=== PATIENT | female | born 1985 | race Caucasian/White ===

== ENCOUNTER 2018-08-15 11:12 | Emergency (ER) | payer BC, SELFPAY ==
[2018-08-15 11:25] VITALS: BP 125/73
[2018-08-15] MEDS ORDERED: Lactated Ringers 1,000 ML IV SCH (11:45)
--- NOTE | 2018-08-15 11:45 | EDM.PDOC ---
ED HPI GENERAL MEDICAL PROBLEM - General Chief Complaint: Abdominal Pain Stated Complaint: POSSIBLE BOWEL OBSTRUCTION Time Seen by Provider: 08/15/18 11:30 Source of Information: Reports: Patient, Old Records History Limitations: Reports: No Limitations - History of Present Illness INITIAL COMMENTS - FREE TEXT/NARRATIVE: 33 yo female with a remote hx of gastric bypass about 9-10 yrs ago and a pHx of recurrent bowel obstructions presents with progressive sx's of abdominal pain, anorexia, and GERD that has progressed to vomiting. She was referred by Monet Ontiveros today to the ER to rule out bowel obstruction. She states her current sx' s remind her of when she last had a bowel obstruction. Onset: Gradual Duration: Week(s):, Getting Worse Location: Reports: Abdomen Quality: Reports: Other (crampy) Severity: Moderate Improves with: Reports: None Worsens with: Reports: Other (time) Context: Reports: Other (See HPI) Associated Symptoms: Reports: Loss of Appetite, Nausea/Vomiting. Denies: Fever/ Chills Treatments PROPULSION GENERATOR REPAIRER: Reports: Other (see below) (none) Upper Abdomen Pain Score (Numeric/FACES): 7 - Related Data Allergies Allergy/AdvReac Type Severity Reaction Status Date / Time ethinyl estradiol Allergy Rash Verified 08/15/18 11:44 [From Sprintec (28)] ferric carboxymaltose Allergy Other Verified 08/15/18 11:44 [From Injectafer] norgestimate Allergy Rash Verified 08/15/18 11:44 [From Sprintec (28)] Home Meds: Home Meds Vitamin B Complex [B Complex] 1 each PO DAILY 09/02/14 [History] Zinc 50 mg PO DAILY 09/02/14 [History] Cholecalciferol (Vitamin D3) [Vitamin D3] 3,000 unit PO DAILY 06/12/15 [History] Cyanocobalamin (Vitamin B12) [Vitamin B12] 1,000 mcg IJ Q7D 06/12/15 [History] Multivitamin [Multivitamins] 1 tab PO BID 06/12/15 [History] Polyethylene Glycol 3350 [MiraLAX] 17 gm PO DAILY 06/12/15 [History] Biotin [Hard Nails] 2,500 mcg PO BID 06/16/15 [History] Acetaminophen/Diphenhydramine [Tylenol Pm Ex-Strength Caplet] 1 cap PO BEDTIME PRN 12/18/17 [History] Ferrous Fumarate 1 tab PO DAILY 12/18/17 [History] Sennosides/Docusate Sodium [Sennosides-Docusate Sodium] 2 tab PO BID 12/18/17 [ History] Docusate Sodium [Colace] 100 mg PO BID 12/21/17 [History] Acetaminophen [Tylenol Extra Strength] 1,000 mg PO Q6H PRN tablet 12/26/17 [Rx] Omeprazole 40 mg PO BID #60 cap.cr 12/26/17 [Rx] Ondansetron [Zofran ODT] 4 mg PO Q6H PRN #30 tab.dis 12/26/17 [Rx] Past Medical History HEENT History: Reports: Otitis Media Respiratory History: Reports: Sleep Apnea Other Respiratory History: hx before [facility] Gastrointestinal History: Reports: Bowel Obstruction, Chronic Constipation, Gastritis, GERD, GI Bleed, Irritable Bowel Syndrome, PUD, Other (See Below) Other Gastrointestinal History: volvulus Genitourinary History: Reports: UTI, Recurrent STUNT DOUBLE History: Reports: Endometriosis, Spontaneous , Other (See Below) Other STUNT DOUBLE History: polyps Musculoskeletal History: Reports: Back Pain, Chronic, Other (See Below) Other Musculoskeletal History: herniated disc Endocrine/Metabolic History: Reports: Vitamin D Deficiency Hematologic History: Reports: Anemia, B12 Deficiency, Iron Deficiency Dermatologic History: Reports: Eczema - Infectious Disease History Infectious Disease History: Reports: Chicken Pox - Past Surgical History Head Surgeries/Procedures: Reports: None HEENT Surgical History: Reports: Other (See Below) Other HEENT Surgeries/Procedures: right eardrum ruptured GI Surgical History: Reports: Bariatric Procedure, EGD Female Surgical History: Reports: D&C, Hysterectomy, Other (See Below) Other Female Surgeries/Procedures: d&c x2 Social & Family History - Family History HEENT: Reports: Cataract Cardiac: Reports: Heart Murmur, High Cholesterol, Hypertension, CA GI: Reports: Colon Polyps, Diverticulitis, Hiatal Hernia, Irritable Bowel Syndrome, PUD OBGYN: Reports: Endometriosis, , Recurrent Spontaneous Neurological: Reports: CVA, Migraines Psychiatric: Reports: Depression Immunologic: Reports: Immunosuppression, Other (See Below) Other Immunologic Family History: lupus Oncologic: Reports: Brain, Cervix, Colon - Caffeine Use Caffeine Use: Reports: Coffee ED ROS GENERAL - Review of Systems Review Of Systems: See Below Constitutional: Reports: No Symptoms HEENT: Reports: No Symptoms Respiratory: Reports: No Symptoms Cardiovascular: Reports: No Symptoms GI/Abdominal: Reports: Abdominal Pain, Anorexia, Constipation (chronic, not changed, managed effectively with Miralax), Decreased Appetite, Nausea, Vomiting. Denies: Black Stool, Bloody Stool, Diarrhea, Distension, Flatus, Hematemesis, Hematochezia, Melena : Reports: No Symptoms Musculoskeletal: Reports: No Symptoms Skin: Reports: No Symptoms ED EXAM, GI/ABD - Physical Exam Exam: See Below Exam Limited By: No Limitations General Appearance: Alert, WD/WN, No Apparent Distress Eyes: Bilateral: Normal Appearance Ears: Normal External Exam, Normal Canal, Hearing Grossly Normal Nose: Normal Inspection, No Blood Throat/Mouth: Normal Inspection, Normal Lips, Normal Voice, No Airway Compromise Head: Atraumatic, Normocephalic Neck: Normal Inspection Respiratory/Chest: No Respiratory Distress, Lungs Clear, Normal Breath Sounds, No Accessory Muscle Use Cardiovascular: Regular Rate, Rhythm, No Edema GI/Abdominal Exam: Soft, No Distention, Tender, Abnormal Bowel Sounds (increased ). No: Non-Tender, Distended, Guarding, Rigid, Rebound Back Exam: Normal Inspection. No: CVA Tenderness (R), CVA Tenderness (L) Extremities: Normal Inspection, Normal Range of Motion, Non-Tender, No Pedal Edema Neurological: Alert, Oriented, CN II-XII Intact, Normal Cognition, No Motor/ Sensory Deficits Psychiatric: Normal Affect, Normal Mood Skin Exam: Warm, Dry, Intact, Normal Color, No Rash Course - Vital Signs Text/Narrative:: Monet Ontiveros called with CT results @ 1300h Last Recorded V/S: Last Vital Signs Temp 35.8 C 08/15/18 11:48 Pulse 68 08/15/18 11:48 Resp 16 08/15/18 11:48 BP 125/73 08/15/18 11:48 Pulse Ox 99 08/15/18 11:48 - Orders/Labs/Meds Orders: Active Orders 24 hr Category Date Time Status Lactated Ringers [Ringers, Lactated] 1,000 ml Med 08/15/18 11:45 Active IV ASDIRECTED Sodium Chloride 0.9% [Saline Flush] Med 08/15/18 11:46 Active 10 ml FLUSH ONETIME PRN Medication Orders Lactated Ringer's (Ringers, Lactated) 1,000 mls @ 150 mls/hr IV ASDIRECTED ELENA Last Admin: 08/15/18 11:57 Dose: 150 mls/hr Sodium Chloride (Saline Flush) 10 ml FLUSH ONETIME PRN PRN Reason: PER RADIOLOGY PROTOCOL Last Admin: 08/15/18 12:09 Dose: 10 ml Meds: Medications Generic Name Dose Route Start Last Admin Trade Name Freq PRN Reason Stop Dose Admin Lactated Ringer's 1,000 mls @ 150 mls/hr 08/15/18 11:45 08/15/18 11:57 Ringers, Lactated IV 150 mls/hr ASDIRECTED ELENA Administration Sodium Chloride 10 ml 08/15/18 11:46 08/15/18 12:09 Saline Flush FLUSH 10 ml ONETIME PRN Administration PER RADIOLOGY PROTOCOL Discontinued Medications Generic Name Dose Route Start Last Admin Trade Name Freq PRN Reason Stop Dose Admin Sodium Chloride 70 mls @ 3 mls/sec 08/15/18 11:46 08/15/18 12:09 Normal Saline IV 08/15/18 11:47 3 mls/sec ONETIME ONE Administration Iopamidol 96 ml 08/15/18 11:46 08/15/18 12:09 Isovue-300 (61%) IV 96 ml . DIRECTED PRN Administration RADIOLOGY EXAM - Radiology Interpretation Free Text/Narrative:: CT abd/pelvis with IV contrast-no findings of bowel obstruction, moderate fluid retention in the distal small bowel and colon. CT Results Date: 08/15/18 Departure - Departure Time of Disposition: 13:02 Disposition: Home, Self-Care 01 Condition: Fair Clinical Impression: Vomiting Qualifiers: Vomiting type: bilious vomiting Nausea presence: with nausea Qualified Code(s) : R11.14 - Bilious vomiting GERD (gastroesophageal reflux disease) Qualifiers: Esophagitis presence: without esophagitis Qualified Code(s): K21.9 - Gastro- esophageal reflux disease without esophagitis - Discharge Information *PRESCRIPTION DRUG MONITORING PROGRAM REVIEWED*: No *COPY OF PRESCRIPTION DRUG MONITORING REPORT IN PATIENT ANNY: No Instructions: Gastroesophageal Reflux Disease, Adult, [id number] Referrals: PCP,None [Primary Care Provider] - Forms: ED Department Discharge Additional Instructions: Double the dose of your omeprazole for the next week. Use Zofran as needed. Eat small amts at a time. F/U with Monet Ontiveros in the clinic in the next few days. - My Orders Last 24 Hours: My Active Orders 08/15/18 11:45 Lactated Ringers [Ringers, Lactated] 1,000 ml IV ASDIRECTED 08/15/18 11:46 Sodium Chloride 0.9% [Saline Flush] 10 ml FLUSH ONETIME PRN - Assessment/Plan Last 24 Hours: My Active Orders 08/15/18 11:45 Lactated Ringers [Ringers, Lactated] 1,000 ml IV ASDIRECTED 08/15/18 11:46 Sodium Chloride 0.9% [Saline Flush] 10 ml FLUSH ONETIME PRN
[2018-08-15] MEDS ORDERED: Sodium Chloride 0.9% 10 ML Syringe FLUSH PRN (11:46)
[2018-08-15] MEDS ORDERED: Iopamidol 612 MG/ML 100 ML Bottle IV PRN (11:46)
--- NOTE | 2018-08-15 12:51 | CRLCT ---
INDICATION: Abdominal pain. History of gastric bypass surgery. TECHNIQUE: CT abdomen and pelvis acquired with 96 cc Isovue 300 IV contrast. COMPARISON: December 16, 2017. FINDINGS: Lower chest: Unremarkable. Liver: Unremarkable. Normal in size and attenuation. No masses. Gallbladder and bile ducts: Unremarkable. No stones or inflammation. No biliary dilatation. Pancreas: Unremarkable. No mass or inflammation. Spleen: Unremarkable. Normal in size. No masses. Adrenal glands: Unremarkable. No nodules. Kidneys: Unremarkable. No masses, stones, or hydronephrosis. GI tract: There are stable gastric bypass changes. There is moderate fluid retention in the distal small bowel and colon. No focal inflammation or mass. Normal appendix. Vasculature: Unremarkable. Lymph nodes: No lymphadenopathy. Omentum/Peritoneum/Abdominal Wall: Small fat containing supraumbilical ventral hernia is unchanged. No free air or fluid collection. Pelvis: A 3 cm left adnexal cystic lesion is present. Otherwise unremarkable pelvis. Bones: Unremarkable for age. IMPRESSION: Stable gastric bypass changes. Bowel pattern does not appear obstructive. However, there is moderate fluid retention in the distal small bowel and colon. This finding can be seen with a nonspecific enteritis. Dictated by Woody Garnica MD @ 08/15/2018 12:49:51 PM Please note that all CT scans at this facility use dose modulation, iterative reconstruction, and/or weight-based dosing when appropriate to reduce radiation dose to as low as reasonably achievable. Dictated by: Woody Garnica MD @ 08/15/2018 12:49:54 (Electronically Signed)
== END 2018-08-15 13:10 | disposition home or self-care (01) ==
LOC: JP.ED 11:12
DX: K21.9 Gastro-esophageal reflux disease without esophagitis (principal); Z88.8 Allergy status to other drugs, medicaments and biological substances; Z79.899 Other long term (current) drug therapy
CPT/HCPCS: 74177; 96360; 99284; J7030; J7120; Q9967

== ENCOUNTER 2020-02-04 11:00 | Inpatient (IN) | payer BC, OTHER ==
[~2020-02-04 11:00] MED LIST: Acetaminophen 500 MG Tab PO ONE; Bupivacaine 0.5% 50 ML MDV ONE; Celecoxib 200 MG Cap PO ONE; Lidocaine 1% with EPINEPHrine 1:100,000 50 ML MDV ONE
[2020-02-04] MEDS ORDERED: ceFAZolin 2 GM in Premix Bag 1 BAG IV ONE (11:30)
[2020-02-04] MEDS ORDERED: Dextrose 5%-Lactated Ringers 1,000 ML IV SCH ×2 (11:30→16:30)
[2020-02-04] MEDS ORDERED: Neostigmine Methylsulfate 1 MG/ML 5 ML Syringe ONE (11:51)
[2020-02-04] MEDS ORDERED: Rocuronium 50 MG/5 ML Vial ONE (11:51)
[2020-02-04] MEDS ORDERED: Dexamethasone 4 MG/ML SDV ONE (11:51)
[2020-02-04] MEDS ORDERED: Glycopyrrolate 0.2 MG/ML 5 ML MDV ONE (11:51)
[2020-02-04] MEDS ORDERED: Propofol 200 MG/20 ML SDV ONE (11:51)
[2020-02-04] MEDS ORDERED: Ondansetron 4 MG/2 ML SDV ONE (11:51)
[2020-02-04] MEDS ORDERED: fentaNYL 250 MCG/5 ML SDV ONE ×2 (11:53→14:37)
[2020-02-04] MEDS ORDERED: Scopolamine 1.5 MG Transdermal Patch TOP SCH (12:00)
[2020-02-04] MEDS ORDERED: Ketamine 50 MG in Sodium Chloride 0.9% 49.5 ML IV SCH (12:00)
[2020-02-04] MEDS ORDERED: Ketamine 500 MG/5 ML MDV IV SCH (12:00)
[2020-02-04] MEDS ORDERED: Naloxone 0.4 MG/ML SDV IVPUSH PRN (12:25)
[2020-02-04] MEDS ORDERED: Ondansetron 4 MG/2 ML SDV IVPUSH PRN (12:25)
[2020-02-04] MEDS ORDERED: diphenhydrAMINE 50 MG/ML SDV IVPUSH PRN (12:25)
[2020-02-04] MEDS ORDERED: diphenhydrAMINE 25 MG Cap PO PRN (12:25)
[2020-02-04] MEDS ORDERED: Naloxone 0.4 MG/ML SDV IV PRN (13:00)
[2020-02-04] MEDS: Meropenem 500 MG SDV ONE ×2 (14:39→14:59)
[2020-02-04] MEDS: HYDROmorphone/Normal Saline 15 MG/30 ML PCA IV PRN (15:28)
[2020-02-04] MEDS ORDERED: hydrOXYzine HCL 100 MG/2 ML SDV IM PRN (17:00)
[2020-02-04] MEDS: SCOPOLAMINE PATCH CHECK TOP SCH (17:05)
[2020-02-04] MEDS: Cyclobenzaprine 10 MG Tab PO PRN (17:09)
[2020-02-04] MEDS: Ondansetron 4 MG/2 ML SDV IVPUSH PRN ×2 (17:37→22:24)
[2020-02-04] MEDS: MVI IV SCH ×4 (18:40)
[2020-02-04] MEDS: [UNRECOGNIZED DRUG - OTHER] IV SCH ×4 (18:40)
[2020-02-04] MEDS: Acetaminophen 500 MG Tab PO SCH (18:40)
[2020-02-04] MEDS: VITAMIN K IV SCH ×4 (18:40)
[2020-02-04] MEDS: LACTATED RINGERS IV SCH ×4 (18:40)
[2020-02-04] MEDS: DEXTROSE 5% IV SCH ×4 (18:40)
[2020-02-04] MEDS: ceFAZolin 2 GM in Premix Bag 1 BAG IV SCH (21:33)
[2020-02-05] MEDS: LACTATED RINGERS IV SCH ×4 (00:15)
[2020-02-05] MEDS: [UNRECOGNIZED DRUG - OTHER] IV SCH ×4 (00:15)
[2020-02-05] MEDS: Acetaminophen 500 MG Tab PO SCH ×4 (00:15→18:15)
[2020-02-05] MEDS: MVI IV SCH ×4 (00:15)
[2020-02-05] MEDS: VITAMIN K IV SCH ×4 (00:15)
[2020-02-05] MEDS: DEXTROSE 5% IV SCH ×4 (00:15)
[2020-02-05] MEDS: Ondansetron 4 MG/2 ML SDV IVPUSH PRN (02:33)
[2020-02-05] MEDS: ceFAZolin 2 GM in Premix Bag 1 BAG IV SCH ×2 (05:27→14:21)
[2020-02-05] MEDS ORDERED: Ondansetron 4 MG Tab.DIS PO PRN (06:40)
[2020-02-05] MEDS: Pantoprazole 40 MG Tab.CR PO SCH (08:04)
[2020-02-05] MEDS: Celecoxib 200 MG Cap PO SCH ×2 (08:04→20:29)
[2020-02-05] MEDS: Bisacodyl 5 MG Tab PO SCH ×2 (08:05→20:29)
[2020-02-05] MEDS: Multivitamins with Iron Tab.Chew PO SCH (08:06)
[2020-02-05] MEDS: SCOPOLAMINE PATCH CHECK TOP SCH (08:07)
[2020-02-05] MEDS ORDERED: Cyanocobalamin (Vitamin B12) 1,000 MCG/ML SDV IM ONE (09:00)
--- NOTE | 2020-02-05 11:21 | PN ---
DATE OF SERVICE: 02/04/2020 SUBJECTIVE: Delia is postoperative day 1. Pain has been controlled with the ASSISTANT EXECUTIVE HOUSEKEEPER. She has been up ambulating. Vital signs have been stable. N.p.o. with ice chips. Oral intake 1800 and urinary output is 420. Remainder of review of systems negative for any pertinent positives and negatives. OBJECTIVE: GENERAL: Yuly Díaz is a pleasant 34-year-old female. She is alert, answers questions appropriately, quite comfortable. VITAL SIGNS: TPR at 0413; 96, 150, 14. Blood pressure 93/57. HEENT: Negative. NECK: Supple. HEART: Regular rate and rhythm. LUNGS: Clear. ABDOMEN: Dressing dry and intact. Abdominal binder is on. EXTREMITIES: Without peripheral edema. ASSESSMENT: Exploratory laparotomy with lysis of adhesions. 1. Repair of incarcerated incisional hernia with mesh. 2. Repair of umbilical hernia. 3. Placement of Interceed mesh. POSTOPERATIVE DIAGNOSES: 1. Incarcerated incisional hernia. 2. Non-incarcerated umbilical hernia. 3. Extensive intraabdominal adhesions. Date of surgery: 02/04/2020. Surgeon: Cameron Albarado MD. PLAN: 1. Decrease IV to 100 mL per hour at 12 noon today. 2. Discontinue Urrutia catheter. 3. Step 2 gastric bypass diet. 4. Dulcolax tablets b.i.d., scheduled until patient has bowel movement. 5. Zofran ODT 4 mg sublingual every 4 hours p.r.n. nausea or vomiting. 6. Continue use of incentive spirometer. 7. We will evaluate p.r.n. or in a.m. Monet Ontiveros PA-C /[id number]
[2020-02-05] MEDS: Dextrose 5%-Lactated Ringers 1,000 ML IV SCH ×2 (11:56→14:25)
[2020-02-05] MEDS: HYDROmorphone/Normal Saline 15 MG/30 ML PCA IV PRN (16:09)
[2020-02-05] MEDS ORDERED: Furosemide 20 MG/2 ML VIAL IVPUSH ONE (20:20)
[2020-02-06] MEDS: Acetaminophen 500 MG Tab PO SCH ×5 (00:01→23:54)
[2020-02-06] MEDS: Dextrose 5%-Lactated Ringers 1,000 ML IV SCH (00:15)
[2020-02-06] MEDS: Bisacodyl 5 MG Tab PO SCH ×3 (08:16→20:56)
[2020-02-06] MEDS: SCOPOLAMINE PATCH CHECK TOP SCH (08:17)
--- NOTE | 2020-02-06 09:14 | PN ---
DATE OF SERVICE: 02/06/2020 SUBJECTIVE: Delia has been up ambulating frequently in the reynaga. She has been afebrile. Oral intake 1620 on a step 2 gastric bypass diet. Urine output after some Lasix was given last night for difficulty urinating, she had a total of 1450 out. Remainder of review of systems negative for any pertinent positives and negatives. OBJECTIVE: GENERAL: Delia Singh is a pleasant 34-year-old female. VITAL SIGNS: TPR at 0734 is 96.7, 60, 12. Blood pressure 107/62. HEENT: Negative. NECK: Supple. HEART: Regular rate and rhythm. LUNGS: Clear. ABDOMEN: Dressings are dry and intact. Abdominal binder is on. EXTREMITIES: Without peripheral edema. ASSESSMENT: Exploratory laparotomy with lysis of adhesions. 1. Repair of incarcerated incisional hernia with mesh. 2. Repair of umbilical hernia. 3. Placement of Interceed mesh. POSTOPERATIVE DIAGNOSES: 1. Incarcerated incisional hernia. 2. Non-incarcerated umbilical hernia. 3. Extensive intraabdominal adhesions. Date of surgery: 02/04/2020. Surgeon: Cameron Albarado MD. PLAN: 1. Discontinue CLINICAL SERVICES MANAGER and continuous pulse ox. 2. Dilaudid 2 mg 1 to 2 every 4 hours p.r.n. pain. 3. Step 4 gastric bypass diet. 4. MiraLAX 17 g p.o. daily. 5. Discontinue scopolamine patch. 6. If dressing off, may shower. 7. To continue ambulation and use of incentive spirometer. 8. We will evaluate p.r.n. or in a.m. Monet Ontiveros PA-C /[id number]
[2020-02-06] MEDS: HYDROmorphone 2 MG Tab PO PRN ×4 (10:08→22:26)
[2020-02-06] MEDS: Polyethylene Glycol 3350 Powder 17 GM Packet PO SCH (10:09)
[2020-02-06] MEDS: Celecoxib 200 MG Cap PO SCH ×3 (10:09→20:56)
[2020-02-06] MEDS: Multivitamins with Iron Tab.Chew PO SCH (10:10)
[2020-02-06] MEDS: Pantoprazole 40 MG Tab.CR PO SCH (10:11)
[2020-02-06] MEDS: Cyclobenzaprine 10 MG Tab PO PRN (23:56)
[2020-02-07] MEDS: HYDROmorphone 2 MG Tab PO PRN ×2 (02:08→06:09)
[2020-02-07] MEDS: Acetaminophen 500 MG Tab PO SCH (06:09)
[2020-02-07] MEDS ORDERED: Furosemide 20 MG/2 ML VIAL IVPUSH ONE (06:46)
[2020-02-07 07:30] VITALS: BP 101/70; PULSE 66
[2020-02-07] MEDS: Pantoprazole 40 MG Tab.CR PO SCH (07:33)
[2020-02-07] MEDS ORDERED: Magnesium Hydroxide 400 MG/5 ML Susp 30 ML Cup PO ONE (09:00)
[2020-02-07] MEDS: Celecoxib 200 MG Cap PO SCH (09:09)
[2020-02-07] MEDS: Multivitamins with Iron Tab.Chew PO SCH (09:09)
[2020-02-07] MEDS: Bisacodyl 5 MG Tab PO SCH (09:10)
[2020-02-07] MEDS: Polyethylene Glycol 3350 Powder 17 GM Packet PO SCH (09:10)
[2020-02-07] MEDS: SCOPOLAMINE PATCH CHECK TOP SCH (09:16)
--- NOTE | 2020-02-07 10:20 | DISCH ---
ADMISSION DIAGNOSES: Incisional hernia abdominal, Fransisco-en-Y gastric bypass surgery, unspecified surgical malabsorption, B12 deficiency, history of factor II deficiency, vitamin D deficiency. DISCHARGE DIAGNOSES: Exploratory laparotomy with lysis of adhesions. 1. Repair of incarcerated incisional hernia with mesh. 2. Repair of umbilical hernia. 3. Placement of Interceed mesh. POSTOPERATIVE DIAGNOSES: 1. Incarcerated incisional hernia. 2. Nonincarcerated umbilical hernia. 3. Extensive intraabdominal adhesions. 4. Date of surgery: 02/04/2020. Surgeon: Cameron Albarado MD. HISTORY: Delia Díaz is a 34-year-old female with incisional hernia. After preoperative evaluation and discussion of possible risks and possible complications, she wished to proceed with surgical procedure. HOSPITAL COURSE: Delia had her surgery on 02/04/2020. She had no operative complications. On postoperative day #1, she was started on step 2 gastric bypass diet. She was up, ambulating. Pain was well controlled. On postoperative day #2, she did have some fluid retention, was given some Lasix IV, and this resolved. Advanced to a step 4 gastric bypass diet and oral pain medication. On postoperative day #3, she was able to be discharged. Vital signs stable. Oral intake and output adequate. She was passing flatus but has not had a bowel movement yet. Pain is well managed, activity good, and was able to be discharged to home on 02/07/2020. PHYSICAL EXAMINATION: GENERAL: Delia Díaz is a pleasant 34-year-old female. VITAL SIGNS: Height is 5 feet 4.75 inches, weight is 147 pounds. TPR at 07:29 is 97.5; 66; 18; blood pressure 101/70. HEENT: Negative. NECK: Supple. HEART: Regular rate and rhythm. LUNGS: Clear. ABDOMEN: Dressings dry and intact. Abdominal binder is on. EXTREMITIES: With trace peripheral edema. DISPOSITION: Discharged to home. CONDITION: Stable and improving. FOLLOWUP APPOINTMENT: Monet Ontiveros PA-C, at [facility] on 02/17/2020 at 9:15 a.m. HOME MEDICATIONS: 1. Celebrex 200 mg oral twice daily, #28. 2. Dilaudid 2 mg, take 2 to 4 mg every 4 hours p.r.n. pain #42. 3. Lasix 20 mg oral daily x3 days. 4. Milk of magnesia 30 mL, two were sent home with the patient, to take 1 daily p.r.n. constipation. 5. Tylenol Extra-Strength 1000 mg oral q.6 hours p.r.n. pain. 6. She is to resume her home medication of: a. Extra-Strength PM Tylenol 1 capsule at bedtime. b. Vitamin D3 3000 International Units daily. c. Vitamin B12 1000 mcg injection every 7 days. d. Colace 100 mg twice daily. e. Ferrous fumarate 1 tablet daily. f. Folic acid 0.4 mg oral daily. g. Multivitamin 1 tablet daily. h. Omeprazole 40 mg twice daily. i. MiraLax 17 g daily. j. Senna-S 2 tablets twice daily. k. Thiamine 250 mg oral daily. l. Zinc 50 mg oral daily. DIET: Step 4 gastric bypass diet. Drink 8 to 10 glasses of water a day. ACTIVITY: No lifting greater than 10 pounds for 6 weeks. Other activity: Walk at least 6 times inside your home. Driving: Do not drive for 1 week and while on pain medication. Shower/bathing: May shower. DISCHARGE INSTRUCTIONS: Notify provider if any fever, increased pain, swelling, redness, drainage, nausea, or vomiting. Keep site clean and dry. Remove Aquacel dressing on 02/10/2020. Wear abdominal binder for 6 weeks and then as tolerated. SPECIAL INSTRUCTION: 1. Use incentive spirometer 10 times every hour while awake. 2. For constipation, when you get home, take 7 scoops of MiraLax and mix in either G2 or Powerade Zero.
--- NOTE | 2020-02-09 13:37 | OR ---
DATE OF PROCEDURE: 02/04/2020 SURGEON: Cameron Albarado MD PREOPERATIVE DIAGNOSIS: Incisional hernia. POSTOPERATIVE DIAGNOSES: 1. Incarcerated incisional hernia. 2. Non-incarcerated umbilical hernia. 3. Extensive intraabdominal adhesions. OPERATIVE PROCEDURE: Exploratory laparotomy with lysis of adhesions: 1. Repair of incarcerated incisional hernia with mesh ([id number], [id number]). 2. Repair of umbilical hernia with mesh (61092). 3. Placement of Interceed mesh to the displaced pelvic and abdominal wall from underlying viscera to limit recurrent adhesion formation ([id number]). ANESTHESIA: General. RN CARDIOLOGY: Monet Ontiveros PA-C INDICATIONS FOR PROCEDURE: The patient presents with a fairly broad-based incisional hernia in the upper midline incision. Plan is to proceed with repair of this with open approach with mesh. Potential risks including bleeding, infection, injury to underlying viscera, or problems with mesh becoming infected or hernia recurring were all reviewed, and the patient wishes to proceed. DETAILS OF PROCEDURE: The patient was taken to the operating room, and after general endotracheal anesthesia was induced, Urrutia catheter was inserted, and the abdomen prepped and draped. The previous midline incision was then made and continued down through the skin and subcutaneous and tissue. Hernia sac was then encountered, and this was then dissected free down to the level of the fascia circumferentially. Hernia sac was then opened and contained some incarcerated omentum and some appendix epiploica, which was dissected free from the underlying peritoneum, and the peritoneal sac was excised. Palpation revealed few additional omental adhesions to the abdominal wall. The patient was noted to have a separate non-incarcerated umbilical hernia as well at this point. Once the dissection was sufficiently completed to allow placement of mesh, a Ventrio ST hernia patch measuring 19.6 x 24.6 cm was selected at 5 cm intervals around its circumference. 2-0 Vicryl sutures were placed, and the mesh was placed in antibiotic- containing saline solution. At this point then the mesh was placed in intraperitoneal location, premarked location on the abdominal wall. The remaining sutures were pulled up thus fixing the mesh well away from the fascial edges. A small incision was made at that point, and the mesh was then pulled up with the upper half being placed initially. The mesh was oriented essentially with the long axis in the vertical midline. Once the upper half of the mesh with sutures were placed, Interceed mesh was placed underneath the Ventrio mesh and from there down towards the pelvis to displace those surfaces from the underlying viscera to limit recurrent adhesion formation. The lower half of the sutures was then pulled up through the stab wounds thus fixing the mesh again well away from the fascial edges. This included overlap of the umbilical hernia as well. At this point, the sutures were tied, and the mesh was further secured circumferentially with titanium tacking screws to the abdominal wall from the underlying shelf of the mesh. The midline fascia was then approximated with #2 Vicryl stitch. Subcutaneous tissue approximated with some 3-0 and 4-0 Vicryl stitch deep and edel for the skin. Prior to closure bilateral transversus abdominis plane blocks were then placed, and the fascia at the incision anesthetized with 1% lidocaine mixed with Marcaine. The patient was taken to the recovery room in satisfactory condition. Physician teaching assistant, Monet Ontiveros PA-C, played an essential role in assisting in this case, helping to position the patient, and retract structures as needed as well as suturing and cutting sutures when indicated. Her presence improved patient safety and decreased operative time. Cameron Albarado MD /[id number]
== END 2020-02-07 10:35 | disposition home or self-care (01) | DRG 227 ==
LOC: JP.MS 11:00 → EDSTATUS 11:00 → JP.SDS 11:00 → JP.MS 14:30 → JP.SDSSCHI 14:30
PROVIDERS: ADMIT Surgery; ATTEND Surgery
PROC: 0WUF0JZ Supplement Abdominal Wall with Synthetic Substitute, Open Approach (ICD-10-PCS; principal; 2020-02-04)
PROC: 3E0M05Z Introduction of Adhesion Barrier into Peritoneal Cavity, Open Approach (ICD-10-PCS; 2020-02-04)
PROC: 0WUF0JZ Supplement Abdominal Wall with Synthetic Substitute, Open Approach (ICD-10-PCS; 2020-02-04)
DX: K43.0 Incisional hernia with obstruction, without gangrene (principal); K42.9 Umbilical hernia without obstruction or gangrene; K66.0 Peritoneal adhesions (postprocedural) (postinfection); E53.8 Deficiency of other specified B group vitamins; K21.9 Gastro-esophageal reflux disease without esophagitis; E66.01 Morbid (severe) obesity due to excess calories; Z79.899 Other long term (current) drug therapy; Z90.710 Acquired absence of both cervix and uterus; Z68.24 Body mass index [BMI] 24.0-24.9, adult
CPT/HCPCS: 88302; 94762; A9270-GY; C1713; C1781; J0171; J0690; J1100; J1170; J1940; J2020; J2185; J2405; J2704; J2710; J2795; J3010; J3411; J3420; J3490; J7050; J7121

== ENCOUNTER 2025-03-04 00:20 | Inpatient (IN) | payer OTHER ==
[2025-03-04] MEDS: Sodium Chloride 0.9% 10 ML Syringe FLUSH PRN (01:07)
[2025-03-04] MEDS ORDERED: Naloxone 0.4 MG/ML SDV IVPUSH PRN ×3 (01:09→05:20)
[2025-03-04 01:10] LABS: BASOPHILS ABSOLUTE AUTO 0.04 K/uL (0.00-0.10); BASOPHILS PERCENT AUTO 0.3 % (0.1-1.3); EOSINOPHILS ABSOLUTE AUTO 0.04 K/uL (0.00-0.40); EOSINOPHILS PERCENT AUTO 0.3 % (0.0-5.4); IMMATURE GRAN ABSOLUTE AUTO 0.04 K/uL (0.00-0.23); IMMATURE GRAN PERCENT AUTO 0.3 % (0.0-0.7); LYMPHOCYTES ABSOLUTE AUTO 1.19 K/uL (0.8-3.3); LYMPHOCYTES PERCENT AUTO 9.3 % (11.4-47.7); MONOCYTES ABSOLUTE AUTO 0.58 K/uL (0.20-0.90); MONOCYTES PERCENT AUTO 4.6 % (3.3-12.6); NEUTROPHILS ABSOLUTE AUTO 10.85 K/uL (1.0-7.6); NEUTROPHILS PERCENT AUTO 85.2 % (40.0-78.1); PLATELET COUNT,PLT 298 K/uL (130-375); RED BLOOD CELL COUNT 4.76 M/uL (3.77-5.24); WHITE BLOOD CELL COUNT,WBC 12.7 K/uL (3.2-11.0)
[2025-03-04] MEDS: Ondansetron 4 MG/2 ML SDV IVPUSH ONE (01:15)
[2025-03-04 01:33] LABS: LACTIC ACID 1.3 mmol/L (0.4-2.0)
[2025-03-04 01:50] LABS: A/G RATIO 1.5 (1.2-2.2); ALANINE AMINOTRANSFERASE,ALT 19 U/L (12-78); ASPARTATE AMNIOTRANSFERASE,AST 19 U/L (15-37); BILIRUBIN TOTAL 0.4 mg/dL (0.2-1.0); BLOOD UREA NITROGEN,BUN 10 mg/dL (7-18); CARBON DIOXIDE,CO2 26 mmol/L (21-32); CHLORIDE,CL 103 mmol/L (100-108); CREATININE 0.8 mg/dL (0.6-1.0); EST CRCL DRUG DOSING (CG) 81.53 mL/min; ESTIMATED GFR 96 mL/min (>60); GLUCOSE RANDOM 112 mg/dL (74-106); POTASSIUM,K 3.3 mmol/L (3.6-5.2); PROTEIN TOTAL,TP 7.5 g/dL (6.4-8.2); SODIUM,NA 142 mmol/L (140-148)
[2025-03-04] MEDS: Iopamidol 612 MG/ML 100 ML Bottle IV SCH (02:15)
[2025-03-04] MEDS: Prochlorperazine 10 MG/2 ML SDV IVPUSH ONE (03:11)
[2025-03-04] MEDS ORDERED: Ondansetron 4 MG/2 ML SDV IV PRN (05:20)
[2025-03-04] MEDS ORDERED: Sodium Chloride 0.9% 10 ML Syringe FLUSH PRN (05:20)
[2025-03-04 06:00] LABS: BASOPHILS ABSOLUTE AUTO 0.03 K/uL (0.00-0.10); BASOPHILS PERCENT AUTO 0.3 % (0.1-1.3); EOSINOPHILS PERCENT AUTO 0.1 % (0.0-5.4); IMMATURE GRAN ABSOLUTE AUTO 0.03 K/uL (0.00-0.23); IMMATURE GRAN PERCENT AUTO 0.3 % (0.0-0.7); LYMPHOCYTES ABSOLUTE AUTO 0.91 K/uL (0.8-3.3); LYMPHOCYTES PERCENT AUTO 10.1 % (11.4-47.7); MONOCYTES ABSOLUTE AUTO 0.36 K/uL (0.20-0.90); MONOCYTES PERCENT AUTO 4.0 % (3.3-12.6); NEUTROPHILS ABSOLUTE AUTO 7.64 K/uL (1.0-7.6); NEUTROPHILS PERCENT AUTO 85.2 % (40.0-78.1); PLATELET COUNT,PLT 247 K/uL (130-375); RED BLOOD CELL COUNT 4.15 M/uL (3.77-5.24); WHITE BLOOD CELL COUNT,WBC 9.0 K/uL (3.2-11.0)
[2025-03-04 06:05] LABS: EOSINOPHILS ABSOLUTE AUTO 0.01 K/uL (0.00-0.40)
[2025-03-04 06:17] LABS: BLOOD UREA NITROGEN,BUN 8.0 mg/dL (7-18); CARBON DIOXIDE,CO2 27.0 mmol/L (21-32); CHLORIDE,CL 106.0 mmol/L (100-108); CREATININE 0.7 mg/dL (0.6-1.0); EST CRCL DRUG DOSING (CG) 93.17 mL/min; ESTIMATED GFR 113.0 mL/min (>60); GLUCOSE RANDOM 131.0 mg/dL (74-106); POTASSIUM,K 3.7 mmol/L (3.6-5.2); SODIUM,NA 142.0 mmol/L (140-148)
[2025-03-04] MEDS ORDERED: LORazepam 2 MG/ML SDV IVPUSH PRN (06:58)
[2025-03-04] MEDS: Ketorolac 15 MG/ML SDV IVPUSH PRN (08:35)
[2025-03-05 06:01] LABS: BASOPHILS ABSOLUTE AUTO 0.03 K/uL (0.00-0.10); BASOPHILS PERCENT AUTO 0.6 % (0.1-1.3); EOSINOPHILS ABSOLUTE AUTO 0.12 K/uL (0.00-0.40); EOSINOPHILS PERCENT AUTO 2.4 % (0.0-5.4); IMMATURE GRAN PERCENT AUTO 0.4 % (0.0-0.7); LYMPHOCYTES ABSOLUTE AUTO 1.82 K/uL (0.8-3.3); LYMPHOCYTES PERCENT AUTO 37.1 % (11.4-47.7); MONOCYTES ABSOLUTE AUTO 0.39 K/uL (0.20-0.90); MONOCYTES PERCENT AUTO 7.9 % (3.3-12.6); NEUTROPHILS ABSOLUTE AUTO 2.53 K/uL (1.0-7.6); NEUTROPHILS PERCENT AUTO 51.6 % (40.0-78.1); PLATELET COUNT,PLT 238 K/uL (130-375); RED BLOOD CELL COUNT 3.97 M/uL (3.77-5.24); WHITE BLOOD CELL COUNT,WBC 4.9 K/uL (3.2-11.0)
[2025-03-05 06:04] LABS: IMMATURE GRAN ABSOLUTE AUTO 0.02 K/uL (0.00-0.23)
[2025-03-05 06:16] LABS: BLOOD UREA NITROGEN,BUN 5.0 mg/dL (7-18); CARBON DIOXIDE,CO2 25.0 mmol/L (21-32); CHLORIDE,CL 108.0 mmol/L (100-108); CREATININE 0.6 mg/dL (0.6-1.0); EST CRCL DRUG DOSING (CG) 108.7 mL/min; ESTIMATED GFR 117.0 mL/min (>60); GLUCOSE RANDOM 91.0 mg/dL (74-106); POTASSIUM,K 4.0 mmol/L (3.6-5.2); SODIUM,NA 141.0 mmol/L (140-148)
[2025-03-05 12:25] VITALS: BP 124/78; PULSE 58
== END 2025-03-05 12:25 | disposition home or self-care (01) | DRG 390 ==
LOC: JP.ED 00:20 → JP.ICU 04:49 → JP.MS 09:48
PROVIDERS: ADMIT Nurse Practitioner; ATTEND Internal Medicine
DX: K56.51 Intestinal adhesions [bands], with partial obstruction (principal); H54.7 Unspecified visual loss; J30.2 Other seasonal allergic rhinitis; K59.09 Other constipation; I95.9 Hypotension, unspecified; K58.9 Irritable bowel syndrome, unspecified; G89.29 Other chronic pain; M54.9 Dorsalgia, unspecified; K21.9 Gastro-esophageal reflux disease without esophagitis; Z87.442 Personal history of urinary calculi; Z98.84 Bariatric surgery status; Z88.8 Allergy status to other drugs, medicaments and biological substances; Z79.899 Other long term (current) drug therapy; Z86.16 Personal history of COVID-19; Z90.710 Acquired absence of both cervix and uterus; Z98.890 Other specified postprocedural states; Z87.19 Personal history of other diseases of the digestive system
CPT/HCPCS: 36415; 74019; 74019-26; 74177; 80048; 80053; 83605; 83690; 85025; 96361; 96374; 96375; 96376; 99223; 99238; 99285; 99285-25; A9270-GY; J0780; J1171; J1885; J2405; J2470; J3480; J7030; Q9967